=== PATIENT | male | born 1935 | race Caucasian/White ===

== ENCOUNTER 2020-07-07 12:25 | Inpatient (IN) | payer MEDICARE, OTHER ==
[~2020-07-07] VITALS: Ht 177.8 cm; Wt 92.5 kg
--- NOTE | 2020-07-07 12:30 | NUR ---
[facility],C/O BILATERAL LEG PAIN THIS MORNING. THE PATIENT RATES PAIN 5/10. THE PATIENT IS ALERT AND ORIENTED X3. DENIES SOB. RESPIRATION REGULAR AND UNLABORED. THE PATIENT IS ATTACHED ON A MONITOR. BLANKET PROVIDED FOR COMFORT. WILL CONTINUE TO MONITOR.
[2020-07-07] MEDS ORDERED: CHOL100062 PO (12:43)
[2020-07-07] MEDS ORDERED: ZINC1CAP3 PO (12:43)
[2020-07-07] MEDS ORDERED: BISA10SU11 RC (12:43)
[2020-07-07] MEDS ORDERED: LEVE250T2 PO (12:43)
[2020-07-07] MEDS ORDERED: MAGN400O6 PO (12:43)
[2020-07-07] MEDS ORDERED: NA P133E RC (12:43)
[2020-07-07] MEDS ORDERED: AMIN30LI2 PO (12:43)
[2020-07-07] MEDS ORDERED: LORA-259 PO (12:43)
[2020-07-07] MEDS ORDERED: RISP0.2515 PO (12:43)
[2020-07-07] MEDS ORDERED: TAMS-12 PO (12:43)
[2020-07-07] MEDS ORDERED: ACET-868 PO (12:43)
[2020-07-07] MEDS ORDERED: ASCO-352 PO (12:43)
--- NOTE | 2020-07-07 12:48 | NUR ---
DR HOUSTON IS MADE AWARE THAT THE PATIENT REFUSES IV LINE INSERTION AND BLOOD DRAW DESPITE EXPLAINING RISKS AND BENEFITS. PER DR HOUSTON " IT IS OK."
--- NOTE | 2020-07-07 13:00 | NUR ---
Paged epic for panel admission
--- NOTE | 2020-07-07 13:29 | NUR ---
Covid swab done and taken it to the lab.
[2020-07-07] MEDS ORDERED: NA PHOS,M-B/NA PHOS,DI-BA 1 EA ENEMA RC PRN (13:30)
[2020-07-07] MEDS ORDERED: LORAZEPAM 1 MG TABLET PO PRN (13:30)
[2020-07-07] MEDS ORDERED: ACETAMINOPHEN 325 MG TABLET PO PRN (13:30)
[2020-07-07] MEDS ORDERED: BISACODYL SUPP (10 MG) 10 MG/SUPP.RECT SUPP.RECT RC PRN (13:30)
[2020-07-07] MEDS ORDERED: MAGNESIUM HYDROXIDE 30 ML UDC PO PRN (13:30)
--- NOTE | 2020-07-07 13:42 | NUR ---
Assigned to room 102
[2020-07-07 14:04] VITALS: BP 121/78
--- NOTE | 2020-07-07 14:18 | NUR ---
REPORT GIVEN TO NURSE SOON
--- NOTE | 2020-07-07 14:30 | NUR ---
patient transfered to room 102 in stable condition.
--- NOTE | 2020-07-07 15:18 | NUR ---
PATIENT LEFT AMA VIA [facility]. UPON ARRIVAL TO UNIT, PATIENT REFUSED ASSESSMENT AND VITALS UNTIL HE HAD FOOD, STATING THAT HE DOES NOT WANT TO BE AT THE HOSPITAL AND WANTS TO GO HOME IN [place]. PATIENT STATES HE WISHES TO TAKE [place] TO A [employer] BUS, AND THEN TAKE THE BUS TO [place] TO BE WITH FAMILY. PATIENT OFFERED FOOD, BUT THEN WALKED OUT OF ROOM, REFUSING FOOD. PATIENT PROVIDED EDUCATION REGARDING DIAGNOSIS AND IMPORTANCE OF HOSPITALIZATION. PATIENT ALERT AND ORIENTED X 3. ALL BELONGINGS RETURNED WITH PATIENT. MD LEMUS AWARE. PATIENT ESCORTED VIA WHEELCHAIR TO [facility]
[2020-07-07] MEDS ORDERED: risperiDONE 0.25 MG TABLET PO SCH (17:00)
[2020-07-07] MEDS ORDERED: LEVETIRACETAM (250 MG) 250 MG TABLET PO SCH (21:00)
[2020-07-07] MEDS ORDERED: TAMSULOSIN 0.4 MG CAP.SR.24H PO SCH (22:00)
[2020-07-08] MEDS ORDERED: ASCORBIC ACID 500 MG TABLET PO SCH (09:00)
[2020-07-08] MEDS ORDERED: ZINC SULFATE 220 MG CAPSULE PO SCH (09:00)
[2020-07-08] MEDS ORDERED: CHOLECALCIFEROL 1,000 UNIT TABLET (VIT D3) PO SCH (09:00)
[2020-07-08] MEDS ORDERED: PROSOURCE / PROSTAT (PYXIS) 30 ML UDC PO SCH (09:00)
== END 2020-07-07 15:30 | disposition left against medical advice (07) | DRG 292 ==
LOC: ER 12:38 → MEDSG1 14:34
PROVIDERS: ADMIT Internal Medicine; ATTEND Internal Medicine
DX: I50.23 Acute on chronic systolic (congestive) heart failure (principal); I42.9 Cardiomyopathy, unspecified; I49.9 Cardiac arrhythmia, unspecified; N40.0 Benign prostatic hyperplasia without lower urinary tract symptoms; L89.626 Pressure-induced deep tissue damage of left heel; Z95.0 Presence of cardiac pacemaker; Z90.49 Acquired absence of other specified parts of digestive tract; G40.909 Epilepsy, unspecified, not intractable, without status epilepticus; Z79.899 Other long term (current) drug therapy; F29 Unspecified psychosis not due to a substance or known physiological condition; Z20.822 Contact with and (suspected) exposure to COVID-19
CPT/HCPCS: 71045-TC; 87081-TC; G0378; U0003